=== PATIENT | female | born 1990 | race Caucasian/White ===

== ENCOUNTER 2020-03-27 15:32 | Emergency (ER) | payer BC ==
[2020-03-27] MEDS ORDERED: diphenhydrAMINE 50 MG Cap PO ONE (15:47)
[2020-03-27] MEDS ORDERED: methylPREDNISolone Sodium Succinate 125 MG/2 ML SDV IM ONE (15:47)
--- NOTE | 2020-03-27 15:47 | EDM.PDOC ---
ED HPI GENERAL MEDICAL PROBLEM - General Chief Complaint: Allergic Reaction Stated Complaint: ALLERGIC REACTION Time Seen by Provider: 03/27/20 15:33 Source of Information: Reports: Patient History Limitations: Reports: No Limitations - History of Present Illness INITIAL COMMENTS - FREE TEXT/NARRATIVE: HISTORY AND PHYSICAL: History of present illness: Patient is a 29-year-old female who presents to the emergency room with concerns of an allergic reaction. Approximately 1 hour prior to arrival she was at [employer] eating a sandwich when she felt some tingling to her left upper lip and thought she felt some hives breaking out on her face. She has an allergy to avis but was reassured that their facility does not have any avis being served there. She did call urgent care clinic to see if she could make an appointment but they recommended she come in for evaluation in the emergency room. Patient denies any fever, chills, headache, change in vision, syncope or near syncope. Denies any chest pain, back pain, shortness of breath or cough. Denies any GI or symptoms. Patient had been eating and drinking appropriately. She did not take any medications BANQUET STEWARD. No other new exposures today that she is aware of. Review of systems: As per history of present illness and below otherwise all systems reviewed and negative. Past medical history: As per history of present illness and as reviewed below otherwise noncontributory. Surgical history: As per history of present illness and as reviewed below otherwise noncontributory. Social history: See social history for further information Family history: As per history of present illness and as reviewed below otherwise noncontributory. Physical exam: General: Well-developed and well-nourished 29-year-old female. Alert and oriented. Nontoxic-appearing and in no acute distress. HEENT: Atraumatic, normocephalic, pupils equal and reactive bilaterally, negative for conjunctival pallor or scleral icterus, mucous membranes moist, localized patch of redness noted to left upper lip (no lip swelling or angioedema), TMs normal bilaterally, throat clear without soft tissue swelling, neck supple, nontender, trachea midline. No drooling or trismus noted. No meningeal signs. No hot potato voice noted. Lungs: Clear to auscultation, breath sounds equal bilaterally, chest nontender. Breathes easy and even. No retractions noted. Heart: S1S2, regular rate and rhythm without overt murmur Abdomen: Soft, nondistended, nontender. Negative for masses or hepatosplenomegaly. Negative for costovertebral tenderness. Skin: Localized patch of redness noted to left upper lip. Otherwise skin is intact, warm, dry. No lesions or rashes noted. Extremities: Atraumatic, moves all extremities per self without difficulty or deficits, negative for cords or calf pain. Neurovascular unremarkable. Neuro: Awake, alert, oriented. Cranial nerves II through XII unremarkable. Cerebellum unremarkable. Motor and sensory unremarkable throughout. Exam nonfocal. Notes: My physical exam is within normal limits. Vital signs are stable. I will give her some Benadryl and Solu-Medrol and continue to monitor her over the next 1 hour. Continues to be vitally stable. Breathing is even, easy and clear to auscultation. We discussed the and symptoms that would prompt her to return to the emergency room. The redness that was noted to the left upper lip has resolved. Supportive care measures were reviewed and discussed. Voices understanding and is agreeable to plan of care. Denies any further questions or concerns at this time. Diagnostics: None Therapeutics: Benadryl, Solu-Medrol Prescription: Medrol Dosepak Impression: Allergic reaction Plan: 1. Avoid triggers. Continue to monitor for possible exposures/triggers/foods. 2. While symptomatic continue to routinely take Benadryl 50mg every 4-6 hours and Zantac 150mg twice daily. Take the Medrol dose pack as prescribed. 3. Please follow up with your Primary care doctor as we discussed. Return to the ED as needed and as discussed. Definitive disposition and diagnosis as appropriate pending reevaluation and review of above. MOUTH Pain Score (Numeric/FACES): 4 - Related Data Allergies Allergy/AdvReac Type Severity Reaction Status Date / Time avis Allergy Anaphylactic Verified 03/27/20 16:04 Shock valproic acid Allergy Irritabilit Verified 03/27/20 16:04 y Home Meds: Home Meds . [No Known Home Meds] 03/27/20 [History] ED ROS ALLERGIC REACTION - Review of Systems Review Of Systems: Comprehensive ROS is negative, except as noted in HPI. ED EXAM GENERAL NO PERIP PULSE - Physical Exam Exam: See Below (See dictation) Course - Vital Signs Last Recorded V/S: Last Vital Signs Temp 98.2 F 03/27/20 15:45 Pulse 103 H 03/27/20 15:45 Resp 16 03/27/20 15:45 BP 136/91 H 03/27/20 15:45 Pulse Ox 100 03/27/20 15:45 - Orders/Labs/Meds Meds: Medications Discontinued Medications Generic Name Dose Route Start Last Admin Trade Name Marciano PRN Reason Stop Dose Admin Diphenhydramine HCl 50 mg 03/27/20 15:47 03/27/20 15:56 Benadryl PO 03/27/20 15:48 50 mg ONETIME ONE Administration Methylprednisolone Sodium Succinate 125 mg 03/27/20 15:47 03/27/20 15:56 Solu-Medrol IM 03/27/20 15:48 125 mg ONETIME ONE Administration Departure - Departure Time of Disposition: 16:11 Disposition: Home, Self-Care 01 Clinical Impression: Allergic reaction Qualifiers: Encounter type: initial encounter Qualified Code(s): T78.40XA - Allergy, unspecified, initial encounter - Discharge Information Instructions: Allergies, Adult, [id number] Referrals: Celina Vigil MANAGER ARCHITECTURE [Primary Care Provider] - Additional Instructions: The following information is given to patients seen in the emergency department who are being discharged to home. This information is to outline your options for follow-up care. We provide all patients seen in our emergency department with a follow-up referral. The need for follow-up, as well as the timing and circumstances, are variable depending upon the specifics of your emergency department visit. If you don't have a primary care physician on staff, we will provide you with a referral. We always advise you to contact your personal physician following an emergency department visit to inform them of the circumstance of the visit and for follow-up with them and/or the need for any referrals to a consulting specialist. The emergency department will also refer you to a specialist when appropriate. This referral assures that you have the opportunity for follow-up care with a specialist. All of these measure are taken in an effort to provide you with optimal care, which includes your follow-up. Under all circumstances we always encourage you to contact your private physician who remains a resource for coordinating your care. When calling for follow-up care, please make the office aware that this follow-up is from your recent emergency room visit. If for any reason you are refused follow-up, please contact the [facility] Emergency Department at and asked to speak to the emergency department charge nurse. [facility] [address] [place] [address] [id number] 1. Avoid triggers. Continue to monitor for possible exposures/triggers/foods. 2. While symptomatic continue to routinely take Benadryl 50mg every 4-6 hours and Zantac 150mg twice daily. Take the Medrol dose pack as prescribed. 3. Please follow up with your Primary care doctor as we discussed. Return to the ED as needed and as discussed. Sepsis Event Note - Focused Exam Vital Signs: Vital Signs Temp Pulse Resp BP Pulse Ox 03/27/20 15:45 98.2 F 103 H 16 136/91 H 100 Date Exam was Performed: 03/27/20 Time Exam was Performed: 16:08
== END 2020-03-27 16:30 | disposition home or self-care (01) ==
LOC: MW.ED 15:32
DX: T78.1XXA Other adverse food reactions, not elsewhere classified, initial encounter (principal); Z88.8 Allergy status to other drugs, medicaments and biological substances; Z91.018 Allergy to other foods
CPT/HCPCS: 96372; 99283; A9270; J2930; 99282